=== PATIENT | male | born 1980 | race Caucasian/White ===

== ENCOUNTER 2016-05-03 14:38 | Emergency (ER) | payer OTHER ==
[~2016-05-03] VITALS: Ht 182.9 cm; Wt 124.0 kg
[~2016-05-03 14:38] MED LIST: ACET-2047 PO; AMLO-145 PO; AMLO-218 PO; LANS30TA6 PO; NO MEDS TAKEN; ONDA-43 PO
[2016-05-03 14:41] VITALS: Ht 182.9 cm; Wt 124.0 kg
[2016-05-03] MEDS ORDERED: NICARDipine HCL 30 MG CAPSULE PO ONE (16:30)
[2016-05-03] MEDS ORDERED: LORAZEPAM 0.5 MG TAB PO ONE (16:30)
[2016-05-03 17:45] VITALS: TEMP 98.2
[2016-05-03] MEDS ORDERED: LOSA1TAB20 PO (17:53)
[2016-05-03] MEDS ORDERED: LORA1TAB PO (17:53)
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
[2016-05-03 18:30] VITALS: BP 155/96; PULSE 90; RESP 16
== END 2016-05-03 18:32 | disposition home or self-care (01) ==
LOC: FTE 14:38
DX: I15.9 Secondary hypertension, unspecified (principal); F17.210 Nicotine dependence, cigarettes, uncomplicated
CPT/HCPCS: 93005